=== PATIENT | male | born 1990 | race Caucasian/White ===

== ENCOUNTER 2018-08-26 07:00 | Day surgery (SDC) | payer OTHER ==
[2018-08-23 12:11] VITALS: BMI 23.6
[2018-08-26 07:53] LABS: HEMATOCRIT 45.3 % (35.4-49); HEMOGLOBIN 14.7 GM/dl (11.7-16.9); MCH 29.2 pg (25.7-33.7); MCHC 32.4 g/dl (32.0-35.9); MEAN CELL VOLUME 90.2 fl (80-96); MEAN PLT VOLUME 8.6 fl (7.5-11.1); PLATELET COUNT 234 K/MM3 (134-434); RBC 5.03 M/mm3 (4.00-5.60); RDW 12.7 % (11.9-15.9); WHITE BLOOD COUNT 4.5 K/mm3 (4.0-10.8)
[2018-08-26 08:01] LABS: ALBUMIN 3.9 g/dl (3.5-5.0); ALK PHOS 59 U/L (32-92); ANION GAP 4 MMOL/L (8-16); BILIRUBIN,TOTAL 0.6 mg/dl (0.2-1.0); BLOOD UREA NITROGEN 15 mg/dl (7-18); CALCIUM 9.2 mg/dl (8.4-10.2); CHLORIDE 110 mmol/L (98-107); CO2 26 mmol/L (22-28); GLUCOSE,RANDOM 110 mg/dl (74-106); MAGNESIUM 1.9 mg/dL (1.8-2.4); POTASSIUM 3.8 mmol/L (3.5-5.1); SGOT/AST 24 U/L (10-42); SGPT/ALT 23 U/L (10-40); SODIUM 140 mmol/L (136-145); TOT PROT 6.6 g/dl (6.4-8.3)
--- NOTE | 2018-08-26 08:55 | HP ---
CHIEF COMPLAINT: Major Depressive Disorder PCP: Faiza Ingram Primary Psychiatrist: Dr. Dayton Hernandez Buford HISTORY OF PRESENT ILLNESS: 27 year-old male with a PMH significant for major depressive disorder. Patient presents today for his first ECT. 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 Smoking: never Alcohol: no Drugs: no Allergies tree nut Allergy (Severe, Verified 08/23/18 12:03) Swelling No Known Drug Allergies Allergy (Verified 08/23/18 12:02) HOME MEDICATIONS: Home Medications Medication Instructions Recorded Alprazolam [Xanax] 3 mg PO HS 08/23/18 Dextroamphetamine/Amphetamine 10 mg PO DAILY 08/23/18 [Adderall 10 mg Tablet] Vilazodone Hydrochloride [Viibryd] 40 mg PO HS 08/23/18 REVIEW OF SYSTEMS CONSTITUTIONAL: Absent: fever, chills, diaphoresis, generalized weakness, malaise, loss of appetite, weight change HEENT: Absent: rhinorrhea, nasal congestion, throat pain, throat swelling, difficulty swallowing, mouth swelling, ear pain, eye pain, visual changes CARDIOVASCULAR: Absent: chest pain, syncope, palpitations, irregular heart rate, lightheadedness , peripheral edema RESPIRATORY: Absent: cough, shortness of breath, dyspnea with exertion, orthopnea, wheezing, stridor, hemoptysis GASTROINTESTINAL: Absent: abdominal pain, abdominal distension, nausea, vomiting, diarrhea, constipation, melena, hematochezia GENITOURINARY: Absent: dysuria, frequency, urgency, hesitancy, hematuria, flank pain, genital pain MUSCULOSKELETAL: Absent: myalgia, arthralgia, joint swelling, back pain, neck pain SKIN: Absent: rash, itching, pallor HEMATOLOGIC/IMMUNOLOGIC: Absent: easy bleeding, easy bruising, lymphadenopathy, frequent infections ENDOCRINE: Absent: unexplained weight gain, unexplained weight loss, heat intolerance, cold intolerance NEUROLOGIC: Absent: headache, focal weakness or paresthesias, dizziness, unsteady gait, seizure, mental status changes, bladder or bowel incontinence PHYSICAL EXAMINATION Vital Signs - 24 hr 08/26/18 07:18 Temperature 98 F Pulse Rate 94 H Respiratory 18 Rate Blood Pressure 132/80 O2 Sat by Pulse 96 Oximetry (%) GENERAL: Awake, alert, and fully oriented, in no acute distress. HEAD: Normal with no signs of trauma. EYES: Pupils equal, round and reactive to light, sclera anicteric, conjunctiva clear. LUNGS: Breath sounds equal, clear to auscultation bilaterally. No wheezes, and no crackles. No accessory muscle use. HEART: Regular rate and rhythm, normal S1 and S2 ABDOMEN: Soft, nontender, not distended MUSCULOSKELETAL: Normal range of motion at all joints. No bony deformities or tenderness. No CVA tenderness. UPPER EXTREMITIES: 2+ pulses, warm, well-perfused. No cyanosis. No clubbing. No peripheral edema. LOWER EXTREMITIES: 2+ pulses, warm, well-perfused. No calf tenderness. No peripheral edema. NEUROLOGICAL: Cranial nerves II-XII intact. Normal speech. Laboratory Results - last 24 hr 08/26/18 08/26/18 07:30 07:30 WBC 4.5 RBC 5.03 Hgb 14.7 Hct 45.3 MCV 90.2 MCH 29.2 MCHC 32.4 RDW 12.7 Plt Count 234 MPV 8.6 Sodium 140 Potassium 3.8 Chloride 110 H Carbon Dioxide 26 Anion Gap 4 L BUN 15 Creatinine 1.0 Creat Clearance w eGFR > 60 Random Glucose 110 H Calcium 9.2 Magnesium 1.9 Total Bilirubin 0.6 AST 24 ALT 23 Alkaline Phosphatase 59 Total Protein 6.6 Albumin 3.9 ASSESSMENT/PLAN: 27 year-old male with no significant PMH presents today for first ECT. Cardiac --no cardiac history --Revised Cardiac Risk Index for Pre-Operative Risk: 0 points, 0.4% risk of major cardiac event Pulmonary --no pulmonary history Neurological --no neurological or neurosurgical history; no history of trauma Anesthesia --no previous surgeries ECT is a low risk procedure. The relative benefits of the planned procedure outweigh the relative risks for this patient at this time. Visit type - Emergency Visit Emergency Visit: No - New Patient This patient is new to me today: Yes Date on this admission: 08/26/18 - Critical Care Critical Care patient: No
[2018-08-26] MEDS ORDERED: KETAMINE HCL 500 MG/10 ML VIAL ONE (09:07)
[2018-08-26] MEDS ORDERED: ACETAMINOPHEN 325 MG TABLET (FP) PO PRN (10:40)
[2018-08-26 11:13] VITALS: TEMP 98.2
[2018-08-26 11:15] VITALS: BP 127/82; PULSE 87
--- NOTE | 2018-08-26 12:15 | EKG ---
Test Reason : Blood Pressure : / mmHG Vent. Rate : 099 BPM Atrial Rate : 099 BPM P-R Int : 148 ms QRS Dur : 088 ms QT Int : 326 ms P-R-T Axes : 086 061 061 degrees QTc Int : 418 ms NORMAL SINUS RHYTHM CANNOT RULE OUT ANTERIOR INFARCT , AGE UNDETERMINED ABNORMAL ECG NO PREVIOUS ECGS AVAILABLE Confirmed by DAISHA SANABRIA MD ([id number]) on 08/26/2018 12:15:43 PM Referred By: Alonzo Gunderson Confirmed By:DAISHA SANABRIA MD
== END 2018-08-26 11:00 | disposition home or self-care (01) ==
LOC: FECT 07:00 → EDBD 08:30 → FECT 11:00
PROVIDERS: ATTEND Psychiatry & Neurology Psychiatry
PROC: GZB4ZZZ Other Electroconvulsive Therapy (ICD-10-PCS; principal; 2018-08-26 08:30)
DX: F33.2 Major depressive disorder, recurrent severe without psychotic features (principal)
CPT/HCPCS: 36415; 80053; 83735; 85027; 90870; 93005; 94760

== ENCOUNTER 2018-08-27 05:48 | Day surgery (SDC) | payer OTHER ==
[2018-08-26 12:11] VITALS: BMI 23.6
[2018-08-27] MEDS ORDERED: KETAMINE HCL 500 MG/10 ML VIAL ONE (07:11)
[2018-08-27 08:37] VITALS: TEMP 97.8
[2018-08-27 08:53] VITALS: BP 134/82; PULSE 86
[2018-08-27] MEDS ORDERED: ONDANSETRON 4 MG/2 ML VIAL IVPUSH PRN (14:10)
[2018-08-27] MEDS ORDERED: LACTATED RINGERS SOLUTION 1,000 ML IV SCH (14:15)
== END 2018-08-27 08:54 | disposition home or self-care (01) ==
LOC: FECT 05:48
PROVIDERS: ATTEND Psychiatry & Neurology Psychiatry
PROC: GZB4ZZZ Other Electroconvulsive Therapy (ICD-10-PCS; principal; 2018-08-27 08:00)
DX: F33.2 Major depressive disorder, recurrent severe without psychotic features (principal)
CPT/HCPCS: 90870; 94760

== ENCOUNTER 2018-09-01 06:03 | Day surgery (SDC) | payer OTHER ==
[2018-08-26 17:18] VITALS: BMI 23.6
[2018-09-01] MEDS ORDERED: KETAMINE HCL 500 MG/10 ML VIAL ONE (07:23)
[2018-09-01] MEDS ORDERED: ONDANSETRON 4 MG/2 ML VIAL IVPUSH PRN (07:26)
[2018-09-01] MEDS ORDERED: LACTATED RINGERS SOLUTION 1,000 ML IV SCH (07:30)
[2018-09-01 08:56] VITALS: TEMP 97.8
[2018-09-01 09:27] VITALS: BP 117/69; PULSE 78
== END 2018-09-01 09:40 | disposition home or self-care (01) ==
LOC: FECT 06:03
PROVIDERS: ATTEND Psychiatry & Neurology Psychiatry
PROC: GZB4ZZZ Other Electroconvulsive Therapy (ICD-10-PCS; principal; 2018-09-01 07:45)
DX: F32.9 Major depressive disorder, single episode, unspecified (principal)
CPT/HCPCS: 90870; 94760

== ENCOUNTER 2018-09-03 05:43 | Day surgery (SDC) | payer OTHER ==
[2018-08-26 17:26] VITALS: BMI 23.6
[2018-09-03] MEDS ORDERED: KETAMINE HCL 500 MG/10 ML VIAL ONE (07:48)
[2018-09-03 09:21] VITALS: BP 127/78; PULSE 67; TEMP 97.7
== END 2018-09-03 09:47 | disposition home or self-care (01) ==
LOC: FECT 05:43
PROVIDERS: ATTEND Psychiatry & Neurology Psychiatry
PROC: GZB4ZZZ Other Electroconvulsive Therapy (ICD-10-PCS; principal; 2018-09-03 07:15)
DX: F32.9 Major depressive disorder, single episode, unspecified (principal)
CPT/HCPCS: 90870; 94760

== ENCOUNTER 2018-09-06 05:46 | Day surgery (SDC) | payer OTHER ==
[2018-08-26 17:29] VITALS: BMI 23.6
[2018-09-06] MEDS ORDERED: KETAMINE HCL 500 MG/10 ML VIAL ONE ×2 (08:26→08:27)
[2018-09-06 09:21] VITALS: TEMP 97.6
[2018-09-06] MEDS ORDERED: ACETAMINOPHEN 325 MG TABLET (FP) PO PRN (10:16)
[2018-09-06] MEDS ORDERED: ONDANSETRON 4 MG/2 ML VIAL IVPUSH PRN (10:16)
[2018-09-06] MEDS ORDERED: LACTATED RINGERS SOLUTION 1,000 ML IV SCH (10:30)
[2018-09-06 10:37] VITALS: BP 138/80; PULSE 76
== END 2018-09-06 10:00 | disposition home or self-care (01) ==
LOC: FECT 05:46
PROVIDERS: ATTEND Psychiatry & Neurology Psychiatry
PROC: GZB4ZZZ Other Electroconvulsive Therapy (ICD-10-PCS; principal; 2018-09-06 07:30)
DX: F32.9 Major depressive disorder, single episode, unspecified (principal)
CPT/HCPCS: 90870; 94760

== ENCOUNTER 2018-09-08 05:44 | Day surgery (SDC) | payer OTHER ==
[2018-09-01 12:34] VITALS: BMI 23.6
[2018-09-08 07:14] VITALS: TEMP 97.6
[2018-09-08] MEDS ORDERED: KETAMINE HCL SYRINGES 150 MG/3 ML VIAL ONE (07:43)
[2018-09-08 09:23] VITALS: BP 120/70; PULSE 77
== END 2018-09-08 09:30 | disposition home or self-care (01) ==
LOC: FECT 05:44
PROVIDERS: ATTEND Psychiatry & Neurology Psychiatry
PROC: GZB4ZZZ Other Electroconvulsive Therapy (ICD-10-PCS; principal; 2018-09-08 07:15)
DX: F32.9 Major depressive disorder, single episode, unspecified (principal)
CPT/HCPCS: 90870; 94760

== ENCOUNTER 2018-09-10 05:46 | Day surgery (SDC) | payer OTHER ==
[2018-09-01 12:37] VITALS: BMI 23.6
[2018-09-10] MEDS ORDERED: KETAMINE HCL SYRINGES 150 MG/3 ML VIAL ONE (07:40)
[2018-09-10] MEDS ORDERED: ACETAMINOPHEN 325 MG TABLET (FP) PO PRN (07:44)
[2018-09-10] MEDS ORDERED: ONDANSETRON 4 MG/2 ML VIAL IVPUSH PRN (07:44)
[2018-09-10] MEDS ORDERED: LACTATED RINGERS SOLUTION 1,000 ML IV SCH (07:45)
[2018-09-10 09:16] VITALS: TEMP 98.4
[2018-09-10 09:19] VITALS: BP 133/83; PULSE 73
== END 2018-09-10 09:20 | disposition home or self-care (01) ==
LOC: FECT 05:46
PROVIDERS: ATTEND Psychiatry & Neurology Psychiatry
PROC: GZB4ZZZ Other Electroconvulsive Therapy (ICD-10-PCS; principal; 2018-09-10 07:00)
DX: F33.2 Major depressive disorder, recurrent severe without psychotic features (principal)
CPT/HCPCS: 90870; 94760

== ENCOUNTER 2018-09-13 05:47 | Day surgery (SDC) | payer OTHER ==
[2018-09-02 11:42] VITALS: BMI 23.6
[2018-09-13] MEDS ORDERED: KETAMINE HCL 500 MG/10 ML VIAL ONE (07:39)
[2018-09-13 08:47] VITALS: TEMP 98
[2018-09-13 09:34] VITALS: BP 124/70; PULSE 89
== END 2018-09-13 09:15 | disposition home or self-care (01) ==
LOC: FECT 05:47
PROVIDERS: ATTEND Psychiatry & Neurology Psychiatry
PROC: GZB4ZZZ Other Electroconvulsive Therapy (ICD-10-PCS; principal; 2018-09-13 07:00)
DX: F33.2 Major depressive disorder, recurrent severe without psychotic features (principal)
CPT/HCPCS: 90870; 94760

== ENCOUNTER 2018-09-15 06:09 | Day surgery (SDC) | payer OTHER ==
[2018-09-02 11:57] VITALS: BMI 23.6
[2018-09-15] MEDS ORDERED: KETAMINE HCL SYRINGES 150 MG/3 ML VIAL ONE (07:10)
[2018-09-15] MEDS ORDERED: ONDANSETRON 4 MG/2 ML VIAL IVPUSH PRN (07:22)
[2018-09-15] MEDS ORDERED: LACTATED RINGERS SOLUTION 1,000 ML IV SCH (07:30)
[2018-09-15 08:19] VITALS: TEMP 97.8
[2018-09-15 09:01] VITALS: BP 131/81; PULSE 80
== END 2018-09-15 08:45 | disposition home or self-care (01) ==
LOC: FECT 06:09
PROVIDERS: ATTEND Psychiatry & Neurology Psychiatry
PROC: GZB4ZZZ Other Electroconvulsive Therapy (ICD-10-PCS; principal; 2018-09-15 07:00)
DX: F33.2 Major depressive disorder, recurrent severe without psychotic features (principal)
CPT/HCPCS: 90870; 94760

== ENCOUNTER 2018-09-17 05:32 | Day surgery (SDC) | payer OTHER ==
[2018-09-02 11:59] VITALS: BMI 23.6
[2018-09-17 06:31] VITALS: TEMP 97.8
[2018-09-17] MEDS ORDERED: KETAMINE HCL SYRINGES 150 MG/3 ML VIAL ONE (07:13)
[2018-09-17 08:44] VITALS: BP 121/74; PULSE 81
== END 2018-09-17 08:40 | disposition home or self-care (01) ==
LOC: FECT 05:32
PROVIDERS: ATTEND Psychiatry & Neurology Psychiatry
PROC: GZB4ZZZ Other Electroconvulsive Therapy (ICD-10-PCS; principal; 2018-09-17 07:00)
DX: F33.2 Major depressive disorder, recurrent severe without psychotic features (principal)
CPT/HCPCS: 90870; 94760

== ENCOUNTER 2018-09-20 05:44 | Day surgery (SDC) | payer OTHER ==
[2018-09-20 07:07] VITALS: TEMP 98.2; BMI 23.6
[2018-09-20] MEDS ORDERED: KETAMINE HCL 500 MG/10 ML VIAL ONE (07:59)
[2018-09-20 09:19] VITALS: BP 126/79; PULSE 80
== END 2018-09-20 09:30 | disposition home or self-care (01) ==
LOC: FECT 05:44
PROVIDERS: ATTEND Psychiatry & Neurology Psychiatry
PROC: GZB4ZZZ Other Electroconvulsive Therapy (ICD-10-PCS; principal; 2018-09-20 07:00)
DX: F33.2 Major depressive disorder, recurrent severe without psychotic features (principal)
CPT/HCPCS: 90870; 94760